=== PATIENT | male | born 1980 | race Caucasian/White ===

== ENCOUNTER 2020-02-17 10:30 | Emergency (ER) | payer BC ==
[~2020-02-17] VITALS: Ht 175.3 cm; Wt 113.2 kg
[2020-02-17 11:12] LABS: HEMATOCRIT 48.2 % (42.0-52.0); HEMOGLOBIN 16.5 g/dl (13.5-17.5); MEAN CORPUSCULAR HEMOGLOBIN 29.4 pg (27.0-33.0); MEAN CORPUSCULAR HGB CONC 34.2 g/dl (32.0-36.5); MEAN CORPUSCULAR VOLUME 85.9 fl (80.0-96.0); PLATELET COUNT, AUTOMATED 313 10^3/uL (150-450); RED BLOOD COUNT 5.61 10^6/uL (4.30-6.10); WHITE BLOOD COUNT 7.3 10^3/uL (4.0-10.0)
[2020-02-17 11:45] LABS: AMPHETAMINES LEVEL URINE NEGATIVE (NEGATIVE); BARBITURATES URINE NEGATIVE (NEGATIVE); BENZODIAZEPINES URINE NEGATIVE (NEGATIVE); CANNABINOIDS URINE NEGATIVE (NEGATIVE); COCAINE METABOLITE URINE NEGATIVE (NEGATIVE); METHADONE URINE NEGATIVE (NEGATIVE); OPIATES URINE NEGATIVE (NEGATIVE); PHENCYCLIDINE URINE NEGATIVE (NEGATIVE)
[2020-02-17 11:47] LABS: ACETAMINOPHEN LEVEL < 2.0 UG/ML (10.0-30.0); ALBUMIN 4.4 GM/DL (3.2-5.2); ALT/SGPT 29 U/L (12-78); BILIRUBIN,DIRECT 0.1 MG/DL (0.0-0.2); BILIRUBIN,TOTAL 0.4 MG/DL (0.2-1.0); BLOOD UREA NITROGEN 10 MG/DL (7-18); CALCIUM LEVEL 9.2 MG/DL (8.5-10.1); CARBON DIOXIDE LEVEL 27 MEQ/L (21-32); CHLORIDE LEVEL 109 MEQ/L (98-107); CREATININE FOR GFR 0.77 MG/DL (0.70-1.30); ETHYL ALCOHOL (ETHANOL) < 0.003 % (0.000-0.010); GLOMERULAR FILTRATION RATE > 60.0 (>60); GLUCOSE, FASTING 110 MG/DL (70-100); POTASSIUM SERUM 4.3 MEQ/L (3.5-5.1); SALICYLATE LEVEL < 1.7 MG/DL (5.0-30.0); SODIUM LEVEL 140 MEQ/L (136-145); THYROID STIMULATING HORMONE 0.878 uIU/ML (0.358-3.740); TOTAL PROTEIN 7.9 GM/DL (6.4-8.2)
[2020-02-17 13:18] VITALS: BP 135/79
== END 2020-02-17 13:19 | disposition home or self-care (01) ==
LOC: M ED 10:30
DX: F43.20 Adjustment disorder, unspecified (principal); F33.9 Major depressive disorder, recurrent, unspecified
CPT/HCPCS: 36415; 80048; 80076; 80307; 84443; 85027; 99284; G0480

== ENCOUNTER 2020-02-19 14:19 | Inpatient (IN) | payer BC ==
[~2020-02-19] VITALS: Ht 175.3 cm; Wt 113.6 kg
[2020-02-19] MEDS ORDERED: MOM 30ML SUSPENSION UDC PO PRN (16:15)
[2020-02-19] MEDS ORDERED: MAALOX 30 ML SUSP *UDC PO PRN (16:15)
[2020-02-19] MEDS ORDERED: ACETAMINOPHEN TAB 650MG DOSE (2X325MG) PO PRN (16:15)
[2020-02-19] MEDS ORDERED: traZODone 50 MG TAB PO PRN (16:15)
[2020-02-19 17:44] VITALS: BP 162/96
[2020-02-20 06:29] VITALS: BP 139/87
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
[2020-02-20] MEDS ORDERED: SERTRALINE HCL 25 MG TABLET PO ONE (10:45)
--- NOTE | 2020-02-20 10:52 | HPEPDOC ---
General Date of Admission Feb 19, 2020 at 16:10 Date of Service: Feb 20, 2020 Chief Complaint The patient is a 39-year-old male admitted with a reason for visit of Unspecified Depressive Disorder. Source: Patient History of Present Illness 39 year old male admitted to [facility] for depression and suicidal attemp by OD with jesi. I am seeing the patient for medical history and physical. He denies as complaints this morning. Home Medications No Active Prescriptions or Reported Meds Allergies Coded Allergies: No Known Allergies (Unverified , 02/17/20) Past Medical History Medical History depression h/o alcohol abuse Surgical History bilateral inguinal hernia, umbilical hernia tonsillectomy and adenoidectomy Family History Significant Family History: Heart disease (father) Social History * Smoker: Denies Alcohol: rarely Drugs: denies A-FIB/CHADSVASC A-FIB History Current/History of A-Fib/PAF?: No Review of Systems Constitutional: Denies: Chills, Fever, Night Sweats Eyes: Denies: Pain, Vision change ENT: Denies: Head Aches, Ear Pain, Dysphagia Skin: Denies: Rash, Lesions, Breakdown Pulmonary: Denies: Dyspnea, Cough Gastrointestinal: Denies: Nausea, Vomiting, Abdominal Pain, Diarrhea Hematologic: Denies: Bruising, Bleeding Excessively Musculoskeletal: Denies: Neck Pain, Back Pain, Joint Pain, Muscle Pain, Spasms Physical Examination General Exam: Positive: Alert, Cooperative, No Acute Distress Eye Exam: Positive: PERRLA, Conjunctiva & lids normal, EOMI; Negative: Sclera icteric ENT Exam: Positive: Atraumatic, Mucous membr. moist/pink, Pharynx Normal Neck Exam: Positive: Supple; Negative: JVD, thyromegaly Chest Exam: Positive: Clear to auscultation, Normal air movement Heart Exam: Positive: Rate Normal, Regular Rhythm, Normal S1, Normal S2; Negative: Murmurs, Rubs Abdomen Exam: Positive: Normal bowel sounds, Soft; Negative: Tenderness, Hepatospenomegaly Extremity Exam: Negative: Clubbing, Cyanosis, Edema Skin Exam: Positive: Nl turgor and temperature; Negative: Breakdown, Lesion Vital Signs Vital Signs Date Time Temp Pulse Resp B/P (MAP) Pulse Ox O2 Delivery O2 Flow Rate FiO2 02/20/20 06:29 97.9 63 18 139/87 (104) 95 Room Air Assessment/Plan 39 year old male admitted to [facility] for depression and suicidal attemp by OD with chen and cameron. I am seeing the patient for medical history and physical. No medical issues at this time Depression as per psychiatrist. Plan / VTE VTE Prophylaxis Ordered?: No SADIA MANCILLA MD Feb 20, 2020 10:52
[2020-02-20 16:00] VITALS: BP 128/83
[2020-02-20 17:55] VITALS: BP 128/83
[2020-02-21 06:38] VITALS: BP 142/92
[2020-02-21] MEDS: SERTRALINE HCL 25 MG TABLET PO SCH (09:05)
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
[2020-02-21] MEDS ORDERED: DISU250T PO (10:39)
[2020-02-21 16:00] VITALS: BP 132/78
[2020-02-22 06:25] VITALS: BP 135/84
[2020-02-22] MEDS: SERTRALINE HCL 25 MG TABLET PO SCH (08:10)
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
[2020-02-22] MEDS ORDERED: SERT25TA21 PO (12:01)
== END 2020-02-22 12:45 | disposition home or self-care (01) | DRG 754 ==
LOC: M ED 14:19 → M ED INP 16:10 → M PSY 17:40
PROVIDERS: ADMIT Psychiatry & Neurology Addiction Medicine; ATTEND Psychiatry & Neurology Addiction Medicine
DX: F32.9 Major depressive disorder, single episode, unspecified (principal); F41.9 Anxiety disorder, unspecified; T45.0X2A Poisoning by antiallergic and antiemetic drugs, intentional self-harm, initial encounter; T38.892A Poisoning by other hormones and synthetic substitutes, intentional self-harm, initial encounter; F10.10 Alcohol abuse, uncomplicated; Z63.0 Problems in relationship with spouse or partner; Z81.8 Family history of other mental and behavioral disorders